=== PATIENT | male | born 1965 | race Caucasian/White ===

== ENCOUNTER 2025-07-20 20:37 | Emergency (ER) | payer OTHER ==
[~2025-07-20] VITALS: Ht 154.9 cm; Wt 97.6 kg
[2025-07-20] MEDS ORDERED: ENALAPRILAT DIHYDRATE 1.25 MG/ML VIAL IV ONE (21:00)
[2025-07-20 21:04] LABS: BASOPHILS 0.9 % (0.2-1.2); EOSINOPHILS 2.0 % (0.8-7.0); LYMPHOCYTES 35.0 % (21.8-53.1); MCH 29.2 PG (25.7-32.2); MCHC 33.0 g/dL (32.3-36.5); MCV 88.5 fL (79.0-92.2); MONOCYTES 8.8 % (5.3-12.2); NEUTROPHILS 53.1 % (34.0-67.9); RBC 5.03 M/uL (4.63-6.08)
[2025-07-20 21:22] LABS: ALT (SGPT) 29.0 U/L (14-59); AST (SGOT) 20.0 U/L (15-37); GLOMERULAR FILTRATION RATE,EST 75.0 mL/min (>60); PROTEIN, TOTAL 6.6 g/dL (6.4-8.2); UREA NITROGEN 16.0 mg/dL (7-18)
[2025-07-20] MEDS ORDERED: METOPROLOL TARTRATE 5 MG/5 ML VIAL IV ONE (22:00)
[2025-07-20] MEDS ORDERED: LISINOPRIL-HCT1 EACH PO (23:23)
[2025-07-20] MEDS ORDERED: KEPPRA500 MG PO (23:23)
[2025-07-20 23:35] VITALS: BP 140/103
--- NOTE | 2025-07-21 23:22 | EKG ---
[facility] [address] [facility] [place] [address] Signed Sinus rhythm with premature atrial complexes Otherwise normal ECG No previous ECGs available Confirmed by Nohemy Soliz MD () on 07/21/2025 11:21:49 PM Electronically Signed By: NOHEMY SOLIZ MD 07/21/25 [facility] PATIENT NAME: MANNIE DURÁN Electrocardiogram DATE OF : 67 PHYSICIAN: NOHEMY SOLIZ MD REPORT #: [id number] REPORT IS CONFIDENTIAL AND NOT TO BE RELEASED WITHOUT AUTHORIZATION
== END 2025-07-20 23:36 | disposition home or self-care (01) ==
LOC: ED 20:37
PROVIDERS: Family Medicine
DX: I10 Essential (primary) hypertension (principal); T46.5X6A Underdosing of other antihypertensive drugs, initial encounter; Z91.148 Patient's other noncompliance with medication regimen for other reason
CPT/HCPCS: 36415; 80053; 80307; 83735; 84484; 85025; 93005; 93010; 96374; 96375; 99283-25; J0360

== ENCOUNTER 2025-07-24 17:48 | Emergency (ER) | payer OTHER ==
[~2025-07-24] VITALS: Ht 177.8 cm; Wt 97.6 kg
[~2025-07-24 17:48] MED LIST: KEPPRA500 MG PO; LISINOPRIL-HCT1 EACH PO
--- OUTSIDE RECORDS SUMMARY | 2025-07-24 17:55 | XMS ---
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 Anais has no Care Guidelines for this patient. [facility]12 MO.) [facility] NOTE: Visits indicate total known visits. ED/[facility] VISIT TRACKING (12 MO.) [facility] 17[facility] COMPLAINT: - CHEST PAIN 07/20/2025 20:[address] [facility] TYPE: Emergency COMPLAINT: - HIGH BP DIAGNOSES: - Essential (primary) hypertension - Patient's other noncompliance with medication regimen for other reason - Underdosing of other antihypertensive drugs, initial encounter INPATIENT VISIT TRACKING (12 MO.) No inpatient visits to display in this time frame [id number]
[2025-07-24] MEDS ORDERED: ASPIRIN 81 MG CHEW PO ONE (18:00)
[2025-07-24 18:04] LABS: BASOPHILS 0.7 % (0.2-1.2); EOSINOPHILS 1.9 % (0.8-7.0); LYMPHOCYTES 33.8 % (21.8-53.1); MCH 29.4 PG (25.7-32.2); MCHC 33.0 g/dL (32.3-36.5); MCV 89.1 fL (79.0-92.2); MONOCYTES 12.5 % (5.3-12.2); NEUTROPHILS 50.9 % (34.0-67.9); RBC 5.31 M/uL (4.63-6.08)
[2025-07-24 18:21] LABS: ALT (SGPT) 31.0 U/L (14-59); AST (SGOT) 23.0 U/L (15-37); GLOMERULAR FILTRATION RATE,EST 62.0 mL/min (>60); PROTEIN, TOTAL 7.0 g/dL (6.4-8.2); UREA NITROGEN 20.0 mg/dL (7-18)
[2025-07-24 19:08] VITALS: BP 150/114
--- NOTE | 2025-07-25 19:51 | EKG ---
[facility] [address] [facility] [place] [address] Signed Sinus rhythm with premature supraventricular complexes Otherwise normal ECG When compared with ECG of 20-JUL-2025 20:53, No significant change was found Confirmed by Hernandez Chirinos DO ([id number]) on 07/25/2025 7:51:27 PM Electronically Signed By: HERNANDEZ CHIRINOS DO 07/25/251950 PATIENT NAME: LUIS ARMANDOMANNIE RORO Electrocardiogram DATE OF : 67 PHYSICIAN: HERNANDEZ CHIRINOS DO REPORT #: [id number] REPORT IS CONFIDENTIAL AND NOT TO BE RELEASED WITHOUT AUTHORIZATION
== END 2025-07-24 19:02 | disposition left against medical advice (07) ==
LOC: ED 17:48
PROVIDERS: Emergency Medicine
DX: R07.9 Chest pain, unspecified (principal); I10 Essential (primary) hypertension; Z53.29 Procedure and treatment not carried out because of patient's decision for other reasons; Z88.0 Allergy status to penicillin; Z79.899 Other long term (current) drug therapy
CPT/HCPCS: 36415; 71045; 80053; 83735; 84484; 85025; 93005; 93010; 99285-25; A9270